=== PATIENT | male | born 1955 | race Caucasian/White ===

== ENCOUNTER 2018-01-25 15:05 | Emergency (ER) | payer OTHER ==
[~2018-01-25] VITALS: Ht 162.6 cm; Wt 81.2 kg
[2018-01-25] MEDS ORDERED: SYNTHROID50 MCG (15:43)
[2018-01-25] MEDS ORDERED: LIPITOR40 MG (15:43)
== END 2018-01-25 18:45 | disposition home or self-care (01) ==
LOC: ER 15:05
DX: R10.11 Right upper quadrant pain (principal)